=== PATIENT | female | born 1945 | race Caucasian/White ===

== ENCOUNTER 2016-11-20 20:20 | Emergency (ER) | payer OTHER, BC ==
[~2016-11-20] VITALS: Ht 167.6 cm; Wt 60.9 kg
[~2016-11-20 20:20] MED LIST: ADULT LOW DOSE81 M1 PO; ADVIL200 M1 PO; ALOE VERA LIQUID; ALTACE2.5 MG PO; ANTACID GELATI1 EACH PO; CARAFATE100 MG/ML PO; CO Q-1010 MG PO; CYCLOBENZAPRINE10 MG PO; DIGESTIVE EN1 TABLET PO; DIGESTIVE ENZY1 EACH PO; DOCUSATE SODIU100 MG PO; ENDOCET 5-3251 EACH PO; FISH OIL CONC1 EACH PO; GINSENG PO; GLUCOSAMINE-CH1 EA27 PO; ODORLESS GARLI300 MG PO; OLIVE LEAF EXT250 MG PO; PAPAYA1 EAC1 PO; PERCOCET 5/31 TABLET PO; PERCODAN TABLE1 EACH PO; POTASSIUM-9999 MG PO; RANITIDINE HCL150 MG PO; RED YEAST RICE600 MG PO; TUMERIC PO; VITAMIN C1000 MG PO; VITAMIN D31000 UNI1 PO; VITAMIN D400 UNI1 PO; [UNRECOGNIZED DRUG - OTHER]; [UNRECOGNIZED DRUG - REMARK]
[2016-11-20 22:31] VITALS: BP 170/75
== END 2016-11-20 22:32 | disposition home or self-care (01) ==
LOC: EXP 20:20 → EME 20:20 → EXP 22:32
PROC: 2W3RX1Z Immobilization of Left Lower Leg using Splint (ICD-10-PCS; principal; 2016-11-20)
DX: S82.832A Other fracture of upper and lower end of left fibula, initial encounter for closed fracture (principal); W01.190A Fall on same level from slipping, tripping and stumbling with subsequent striking against furniture, initial encounter
CPT/HCPCS: 73610; 73630; 99281; 99284